=== PATIENT | female | born 1965 | race Caucasian/White ===

== ENCOUNTER → 2018-01-03 | Outpatient (CLI) | payer BC ==
--- NOTE | 2018-01-04 09:47 | PCVCIMAG ---
APPROVED REPORT Imaging Protocol: Rest Tc-99m/Stress Tc-99m 1 day Study performed: 01/03/2018 09:14:40 Indication: Abnormal EKG, Chest pain, Dyspnea, Palpitations Patient Location: Out-Patient Stress Nurse: Pooja Mtz RN [place] Tech:Kayla Morrisonkenna [facility] Ht: 5 ft 4 in Wt: 134 lbs BSA: 1.65 m2 HR: 86 bpm BP: 120/53 mmHg BMI: 22.99 Rhythm: Sinus [place] Medical History Medical History: Hyperlipidemia, Transient Vertigo Medications: Albuterol, Xanax, Atorvastatin, Topamax, Trizatryptan Allergies: Many, none relating to this study Cardiac Risk Factors: Age Pretest Chest Pain Characteristics: No chest pain Exercise History: Physically active Resting Data Rest SPECT myocardial perfusion imaging was performed in supine position 45 minutes following the intravenous injection of 10.1 mCi of Tc-99m Sestamibi. Time of rest injection: 0830 Date: 01/03/2018 Administration Route: IV Administration Site: Right Wrist Exercise Stress At peak stress, the patient was injected intravenously with 33.5mCi of Tc-99m Sestamibi. Time of stress injection: 1000 Date: 01/03/2018 Administration Route: IV Administration Site: Right Wrist Patient continued to exercise for 1 minute(s). Gated Stress SPECT was performed 45 minutes after stress injection. The images were gated to evaluate regional wall motion and calculate left ventricular ejection fraction. Stress Test Details Stress Test: Exercise stress testing was performed using a [place] protocol. HRMax Heart Rate (APMHR): 167 bpm Resting HR: 86 bpmTarget HR (85% APMHR): 141 bpm Max HR Achieved: 150 bpm % of APMHR: 89 Recovery HR: 100 bpm HR response to stress: Accelerated HR response to stress BP Resting BP: 120/53 mmHg Recovery BP: 118/55 mmHg BP response to stress: Blunted blood pressure response to stress. ECG Resting ECG: Sinus Rhythm, nonspecific ST-T abnormalities Stress ECG: Sinus Tachycardia ST Change: Nondiagnostic resting ST abnormalities Maximum ST Deviation: 0.5 mm Arrhythmia: APC's, VPC's Recovery ECG: Sinus Tachycardia, NSSTT changes Recovery ST Change: Nondiagnostic resting ST abnormalities Recovery ST Deviation: 0 mm Clinical Reason for Termination: Chest pressure, Dyspnea, Dizziness Stress Symptoms: Dyspnea, Dizziness, Chest pressure Exercise duration: 6 min 00 sec Exercise capacity: 7.00 METs Overall Exercise Capacity for Age: Average Scale: Active Angina Score: Exercise-Limiting Symptoms resolved with caffeine. Stress ECG Conclusion 1. SUBJECTIVELY NEGATIVE FOR ISCHEMIA 2. ELECTROCARDIOGRAPHICALLY SUGGESTIVE BUT DID NOT FULFILL CRITERIA FOR ISCHEMIA 3. AVERAGE FUNCTIONAL CAPACITY Xie Treadmill Score is -4.5 which is Moderate risk. Study Data Post stress, the left ventricular ejection was 35%.. Perfusion There is a small area of moderately reduced uptake in the apical segment of the anterior wall which is seen on the stress images as well as the resting images. This area thickens and moves normally and is most consistent with attenuation artifact. Wall Motion Normal left ventricular wall motion. Nuclear Conclusion ECG Findings: negative for ischemia Clinical Findings: negative for ischemia Nuclear Findings: negative for ischemia Exercise Capacity: abnormal Left Ventricular Function: normal 1. LOW RISK STUDY <Conclusion> 1. SUBJECTIVELY NEGATIVE FOR ISCHEMIA 2. ELECTROCARDIOGRAPHICALLY SUGGESTIVE BUT DID NOT FULFILL CRITERIA FOR ISCHEMIA 3. AVERAGE FUNCTIONAL CAPACITY
== END | disposition home or self-care (01) ==
LOC: PCVCIMAG 10:38
PROVIDERS: ATTEND Internal Medicine
DX: R07.9 Chest pain, unspecified (principal); R06.09 Other forms of dyspnea; R94.31 Abnormal electrocardiogram [ECG] [EKG]; R00.2 Palpitations; E78.5 Hyperlipidemia, unspecified
CPT/HCPCS: 78452; 93017; A9500

== ENCOUNTER → 2018-02-05 | Outpatient (CLI) | payer BC ==
--- NOTE | 2018-02-05 15:31 | PCVCIMAG ---
APPROVED REPORT Study performed: 02/05/2018 14:10:13 EXAM: Limited 2D Echocardiogram Patient Location: Echo lab Status: routine BSA: 1.65 HR: 78 bpmBP: 134/60 mmHg Rhythm: PVC's Other Information Study Quality: Good Risk Factors: Cardiac Risk Factors: Hyperlipidemia Indications Palpitations Chest Pain 2D Dimensions IVSd: 5.83 (7-11mm) LVDd: 45.20 mm PWd: 6.78 (7-11mm) LVDs: 34.96 (25-40mm) Left Atrium: 33.24 (27-40mm) LV Single Plane 4CH: 53.14 % LV Single Plane 2CH: 58.81 % Biplane EF: 56.8 % Volumes Left Atrial Volume (Systole) Single Plane 4CH: 33.77 mLSingle Plane 2CH: 49.17 mL Left Ventricle The left ventricle is normal size. There is normal LV segmental wall motion. There is normal left ventricular wall thickness. Left ventricular systolic function is normal. The left ventricular ejection fraction is within the normal range. LVEF is 50-55%. Right Ventricle The right ventricle is normal size. The right ventricular systolic function is normal. Atria The left atrium size is normal. The right atrium size is normal. Aortic Valve The aortic valve is normal in structure. Mitral Valve The mitral valve is normal in structure. Moderate mitral regurgitation. Tricuspid Valve The tricuspid valve is normal in structure. Pulmonic Valve The pulmonary valve is normal in structure. Great Vessels The aortic root is normal in size. IVC is normal in size and collapses >50% with inspiration. Pericardium There is no pericardial effusion. <Conclusion> The left ventricle is normal size. LVEF is 50-55%. The aortic valve is normal in structure. The mitral valve is normal in structure. Moderate mitral regurgitation. The tricuspid valve is normal in structure. The pulmonary valve is normal in structure. There is no pericardial effusion.
== END | disposition home or self-care (01) ==
LOC: PCVCIMAG 13:55
PROVIDERS: ATTEND Internal Medicine
DX: I05.1 Rheumatic mitral insufficiency (principal); R00.2 Palpitations; R07.9 Chest pain, unspecified; E78.5 Hyperlipidemia, unspecified; Z87.898 Personal history of other specified conditions
CPT/HCPCS: 93308